=== PATIENT | female | born 1955 | race Caucasian/White ===

== ENCOUNTER 2018-04-30 05:16 | Inpatient (IN) ==
--- NOTE | 2018-04-25 17:25 | MH ---
cc: Carlos Shultz MD DATE OF ADMISSION: 04/30/2018 She is scheduled to be admitted to the hospital on 04/30/2018. ADMITTING DIAGNOSIS: Osteoarthritis, left knee. HISTORY OF PRESENT ILLNESS: The patient is a 62-year-old white female, who has had a rather longstanding history of pain involving both knees that extended back for at least 6 years, at which time the patient had undergone a right total knee arthroplasty as completed by Dr. Bronson Choudhury. At that time, the patient had been symptomatic about both extremities, but her right knee was the more involved area of discomfort. She reports an uneventful recovery at that time, but over the following years experienced progressive pain involving her left knee, that had become more pronounced with the passage of time, she would continue to utilize various anti-inflammatory medications including Feldene and more recently Celebrex, neither of which had proven to be of any long-term benefit. She had also received previous injections to her left knee. She was subsequently seen by the undersigned physician in March of this year, and at that time, reported obvious incapacitation regarding all ambulatory activities and currently requiring use of a cane as a full-time ambulatory aid. Her x-ray studies revealed obvious degenerative changes with [id number] apposition about the medial compartment, associated with a varus deformity of at least 10 degrees magnitude, secondary involvement of the patellofemoral articulation. Findings and treatment options were reviewed with the patient at that time. The pros and cons of continuing with conservative management versus operative intervention that would involve total knee arthroplasty were outlined in detail. Emphasis was made regarding the fact that the decision to proceed with surgery would be left entirely to the patient's discretion. The patient readily admitted that she had progressed to that point in time, where she was desirous of proceeding in this direction and in compliance with her wishes, she has currently been scheduled for admission in order that total knee replacement be completed. PAST MEDICAL HISTORY, HOSPITALIZATIONS AND SURGERIES: In addition to her right total knee arthroplasty have included TMJ surgery on the left side, which included implant insertion and subsequent implant removal. She has also undergone previous colonoscopy. MEDICAL ILLNESSES: Include hypertension, elevated cholesterol, hypothyroidism, acid reflux, and muscle spasms. CURRENT MEDICATIONS: 1. Flexeril 10 mg twice daily. 2. Celebrex 200 mg twice daily. 3. Lisinopril 40 mg daily. 4. Pravastatin 80 mg daily. 5. Levothyroxine 75 mcg daily. 6. Prilosec twice daily. ALLERGIES: THE PATIENT DENIES ANY KNOWN DRUG ALLERGIES. REVIEW OF SYSTEMS: She does wear glasses. She has had a history of headaches as related to her TMJ disorder. No seizure or syncope. No sinus congestion or epistaxis. Auditory acuity intact. No tinnitus. No bleeding gums or dysphagia. Denies cough, shortness of breath, upper respiratory infection, pneumonia, or tuberculosis. No angina or heart disease. She is medically managed for hypertension. Her appetite is good. Bowel movements are regular. No hepatitis, gallbladder disease, ulcers or hemorrhoids. No urinary tract infection, no kidney stones. Fracture of the 4th metatarsal of her left foot treated nonoperatively. No psychiatric illness. Her remaining review of systems is unremarkable and noncontributory. FAMILY HISTORY: Unremarkable for diabetes, hypertension, tuberculosis, carcinoma, heart, liver or kidney disease. SOCIAL HISTORY: The patient is single. The patient completed a BS education. She is employed as a computer typesetter. She denies active use of tobacco. Ethanol consumption on an occasional basis. PHYSICAL EXAMINATION: VITAL SIGNS: Height 5 feet 7 inches, weight 219 pounds. GENERAL: Reveals an alert, oriented, and responsive 62-year-old white female, who sits quietly upon the examination table with no obvious distress. HEENT: Pupils are equally round and reactive to light. Extraocular movements full. Sclerae are clear. External nares clear. External auditory canals clear. Dental intact. Mucous membranes pink and moist. Pharynx clear. NECK: Supple. There is some limitation of mobility at the extremes of motion with mild discomfort associated, that the patient describes as being chronic in nature. Carotid pulse is palpable bilaterally. Trachea midline. Thyroid without thyroid enlargement. LUNGS: Clear to auscultation and percussion. BACK: No CVA tenderness. No discomfort throughout the dorsolumbar spine. HEART: Regular rate and rhythm. No murmur or gallop. ABDOMEN: Mildly obese, soft, nontender. Bowel sounds present. PELVIC: Per primary care physician. EXTREMITIES: Left knee, there is a generalized fullness about the knee, consistent with redundancy of soft tissue. No obvious intraarticular effusion. Medial joint line tenderness without palpable deformity. Apprehension and compression sign negative. Limited mobility in the 100+ degree range of flexion with pain at the extreme of motion. No significant crepitus. No collateral ligamentous laxity. Amanda test and drawer sign negative. Pivot shift and Daly sign positive for medial compartment pain. Straight leg raising unremarkable at 80 degrees. Satisfactory mobility of the left hip with no associated pain. Distal sensory grossly intact. Mild antalgic gait. NEUROLOGIC: Cranial nerves 2-12 grossly intact. IMPRESSION: Osteoarthritis, left knee. PLAN: Left total knee arthroplasty: The nature of the planned surgical procedure, the potential complications, and risks associated, the expectations of surgery, and the consent form have been thoroughly reviewed with the patient prior to admission to the hospital. Dara has indicated her full understanding regarding all of the above, and given consent to proceed with treatment as outlined. Medical evaluation and clearance for surgery completed by her primary care physician, Dr. Olga Valente. Carlos Shultz MD [facility]/ , 04:43 PM , 04:55 PM
[2018-04-30] MEDS ORDERED: Chlorhexidine Gluconate 2% 1 Pack (2 Cloths) TOPICAL SCH (05:45)
[2018-04-30] MEDS ORDERED: Metoprolol Tartrate 25 MG Tablet PO SCH (05:45)
[2018-04-30] MEDS ORDERED: Sodium Chlor 0.9% Inj 50 ML, Ropivacaine 0.5% PF Inj 24.63 ML, Ketorolac Inj 30 MG, EPI... P-ARTICULR SCH ×5 (06:00)
[2018-04-30] MEDS ORDERED: Sodium Chlor 0.9% Inj 500 ML IV.SIG SCH (06:00)
[2018-04-30] MEDS ORDERED: Bupivacaine Liposomal PF 1.3% Inj 20 ML Vial ONE (06:00)
[2018-04-30] MEDS ORDERED: Tranexamic Acid Inj 1,000 MG in Sodium Chlor 0.9% Inj 100 ML IV.SIG SCH ×2 (06:00→09:00)
[2018-04-30] MEDS ORDERED: ceFAZolin Inj 2,000 MG in Sodium Chlor 0.9% Inj 80 ML IV.SIG SCH (06:00)
[2018-04-30] MEDS ORDERED: ceFAZolin 2 GM Premix Inj 2 GM/50 ML PIGGYBACK IV.SIG ONE (06:04)
[2018-04-30] MEDS ORDERED: Famotidine PF Inj 20 MG/2 ML Vial ONE (06:12)
[2018-04-30] MEDS: fentaNYL Citrate Inj 100 MCG/2 ML Ampul ONE ×2 (06:29→08:56)
[2018-04-30] MEDS ORDERED: fentaNYL Citrate Inj 100 MCG/2 ML Ampul ONE (09:04)
[2018-04-30] MEDS ORDERED: *morphine SULFATE 4 MG/ML PERIprocedure ONLY ONE ×3 (09:06→09:23)
[2018-04-30] MEDS ORDERED: Bisacodyl 10 MG Supp RECTAL PRN (09:14)
[2018-04-30] MEDS ORDERED: Naloxone Inj 0.4 MG/ML Vial IV.PUSH PRN (09:14)
[2018-04-30] MEDS ORDERED: Acetaminophen 325 MG Tablet PO PRN (09:14)
[2018-04-30] MEDS ORDERED: Aluminum/Magnesium/Simethacone Susp 30 ML UDC PO PRN (09:14)
[2018-04-30] MEDS ORDERED: Tranexamic Acid Inj 1,000 MG in Sodium Chlor 0.9% Inj 100 ML IV.SIG ONE (09:14)
[2018-04-30] MEDS ORDERED: Post-op Orders (for Pharmacy) OTHER STA (09:14)
--- NOTE | 2018-04-30 10:12 | XR ---
EXAM DATE: 04/30/2018 10:00 AM EDT AGE/SEX: 62 years / Female INDICATIONS: Post op left total knee arthroplasty. CLINICAL DATA: This is the patient's initial encounter. Patient reports that signs and symptoms have been present for 1 day and indicates a pain score of Nonresponsive. MEDICAL/SURGICAL HISTORY: None. None. COMPARISON: TLI, XR KNEE (1 OR 2 VIEWS), LEFT, 10/04/2016. . FINDINGS: Status post total left knee arthroplasty. All 3 components are appropriately positioned without fract ure. Suprapatellar drain is in place. CONCLUSION: Appropriate postoperative appearance of the left knee status post total arthroplasty. Electronically signed by: Kamlesh Powell MD 04/30/2018 10:11 AM EDT
[2018-04-30] MEDS ORDERED: Morphine Inj 30 MG/30 ML PCA.VIAL PCA PRN (10:14)
[2018-04-30] MEDS ORDERED: HYDROmorphone PF Inj 2 MG/ML Vial ONE (10:21)
--- NOTE | 2018-04-30 10:34 | MP ---
cc: Carlos Shultz MD DATE OF OPERATION: 04/30/2018 PREOPERATIVE DIAGNOSIS: Osteoarthritis of the left knee. POSTOPERATIVE DIAGNOSIS: Osteoarthritis of the left knee. PROCEDURE PERFORMED: Left total knee arthroplasty. SURGEON: Carlos Shultz MD. ANESTHESIA: General endotracheal. INDICATIONS: This is a 62-year-old white female with a longstanding history of bilateral knee pain extending back at least 6 years. The patient reported she had undergone a previous right total knee arthroplasty, but at that time had been symptomatic about both extremities; although, her right knee was the more involved area. She had an uneventful recovery and, over the following year, she experienced progressive pain about her left knee that became more pronounced with the passage of time, during which the patient utilized various anti-inflammatory medications including Feldene and later switched to Celebrex, neither of which have proven to be of any long-term benefit. Previous treatments have also included cortisone injections. She was later seen by the undersigned physician in 03/2018, and at that time she reported obvious incapacitation regarding all ambulatory activities. She was requiring use of a cane as a full-time ambulatory aid. Her x-ray studies revealed obvious degenerative changes with [id number] apposition about the medial compartment, associated with a varus deformity of at least 10 degrees magnitude and secondary involvement of the patellofemoral articulation. Findings and treatment options were reviewed. The pros and cons of continuing with conservative management versus operative intervention involving total knee arthroplasty were outlined. Emphasis was made regarding the fact that the decision to proceed with surgery would be left entirely to the patient's discretion. She readily admitted that she had progressed to that point in time where she desired to proceed accordingly and, in compliance with her wishes, she was scheduled for admission at this time in order that the above be accomplished. FORMAT: Following the induction of satisfactory general anesthesia by endotracheal intubation as completed per the department of anesthesia, a tourniquet was established around the proximal portion of the left lower extremity. The extremity proper was isolated with a U-drape, thereafter being prepped with Betadine solution and draped into a sterile field in the routine manner. Prior to initiation of the actual procedure, the standard timeout protocol was completed. All parameters were appropriately addressed and confirmed by operating room personnel. The extremity was elevated for approximately 1 minute and the tourniquet thus inflated to 250 mmHg pressure. A sharp skin incision was initiated midline over the anterior aspect of the knee and developed through underlying subcutaneous tissue, with hemostasis maintained by electrocautery. By deepening dissection, the anterior capsule was exposed, the medial capsulotomy completed, and the patella subluxed in a lateral orientation. Examination of the joint space revealed tricompartmental degenerative changes, with complete erosion of articular cartilage and underlying subchondral bone exposed. The articular surface of the patella was resected with a power saw. The 3-holed guide was utilized for establishing post-holes. Medial and lateral meniscus structures as well as anterior cruciate ligament were sharply excised. A centering hole was placed in the distal aspect of the femur, allowing positioning of the intramedullary guide. The distal femoral cutting jig was attached and the distal femur resected. AP measurement noted 62.5-mm sizing to be appropriate. The matching cutting block was positioned. Anterior, posterior, and chamfer cuts were completed. Tibial plateau was thereafter subluxed in an anterior orientation, allowing positioning of the extramedullary guide. The tibial plateau was resected and measured with 71-mm sizing and determined to be satisfactory. Trial reduction followed utilizing a 62.5-mm anatomic femoral component, a 71-mm tibial base with both 10 and 12-mm bearing inserts trialed, and the 12-mm thickness was determined to be the more favorable fit. The knee was readily brought to full extension. There was no laxity to varus and valgus stress at both 0 and 90 degrees flexed posture. Orientation was confirmed as appropriate with measurement of the pelvic guide through the mechanical access of the knee. A trial reduction followed utilizing a 28-mm standard 3 post-patellar button. Once again, good tracking demonstrated with no tendency towards subluxation. All trial components being removed, the remaining portion of the proximal tibia was prepared for insertion of the permanent component. The joint space, being thoroughly lavaged with pulsating antibiotic solution, hemostasis maintained by electrocautery. An autogenous bone plug was inserted into the distal femoral guide hole and thereafter a preparation of Palacos bone cement was utilized in inserting knee components in a sequential fashion, which included a 71-mm fixed cruciate tibial plate, to which a 12-mm Vanguard tibial bearing insert was secured with locking park. The 62.5-mm Vanguard femoral component was firmly seated onto the distal femur, excess cement being removed. The knee was brought to full extension and thereafter a 28-mm standard 3 post-patellar button was attached and maintained in place with patellar clamp while cement hardening was complete. Final range of motion assessment noted good tracking stability throughout the knee. Irrigation was repeated with hemostasis maintained. AutoVac drain tubes were inserted through superior stab wounds. The capsule was repaired with 0 Vicryl suture. The remaining portion of the wound was closed in layers in a routine manner, skin margins being reapproximated with a running subcuticular 3-0 Vicryl suture, over which Steri-Strips were applied. Xeroform gauze and a bulky dry sterile dressing were placed. The tourniquet was deflated after 47 minutes of tourniquet time, the extremity being supported in a canvas knee splint. Anesthesia was discontinued and the patient was transferred to a hospital bed and returned to the recovery room in satisfactory condition, having tolerated her operative procedure well. ESTIMATED BLOOD LOSS: Approximately 50 mL as determined per anesthesia. IMPLANTS: All implants were of the [employer] portfolio director. MD NINA Juárez/junior , 09:04 AM , 09:15 AM
[2018-04-30] MEDS ORDERED: Neostigmine Inj 5 MG/5 ML Syringe IV.PUSH ONE (12:00)
[2018-04-30] MEDS ORDERED: Glycopyrrolate Inj 1 MG/5 ML Syringe IV.PUSH ONE (12:00)
[2018-04-30] MEDS ORDERED: Lidocaine PF 1% Inj 5 ML Syringe INFILTRATN ONE (12:00)
--- NOTE | 2018-04-30 13:03 | P.CONIM ---
History of Present Illness Consult date: 04/30/18 Reason for Consult: Opinion and recommendations on treatment of hypertension and hyperlipidemia Primary Care Provider: Olga Valente MD Family Provider: Olga Valente MD History of Present Illness: 62-year-old white female with a history of hypertension, hyperlipidemia, osteoarthritis was had long-term history of left knee pain despite conservative treatment and electively underwent a left total knee arthroplasty today with Dr. shultz. Currently, she is resting and recovering in the PACU. She states her pain is controlled well. She has no other complaints at this time. She states that she does not have problems with constipation. She has not had history of bloody stools or black tarry stools. She states that her blood pressures are relatively controlled well on her home medication. Review of Systems All other systems reviewed negative except as stated in HPI PMFSH - History History Provided By: Patient - Medical History Medical History: Medical History (Last Reviewed 04/30/18 @ 12:53 by Sandi Fernandes MD) Arthritis GERD (gastroesophageal reflux disease) History of anesthesia reaction Hyperlipidemia Hypothyroid Normal colonoscopy Presence of orthopedic joint implant TMJ (temporomandibular joint disorder) - Surgical History Surgical History: Surgical History (Last Reviewed 04/30/18 @ 12:53 by Sandi Fernandes MD) History of mandibular surgery Hx of breast biopsy Hx of total knee replacement - Family History Family History: Family History (Last Updated 04/30/18 @ 12:53 by Sandi Fernandes MD) Other No known health problems - Tobacco History Second Hand Smoke Exposure: No Tobacco Use In Past 30 Days: No Smoking Status: Never smoker - Alcohol History How Often Do You Have a Drink Containing Alcohol: Monthly or less - Substance Use History Substance History: No History of Abuse - Travel History Recent Travel in the [place] Within the Last 8 Weeks: No Recent Travel Out of the Country Within the Last 8 Weeks: No Medications and Allergies Active Medications: Active Medications Acetaminophen (Tylenol) 650 mg PO Q6H PRN PRN Reason: FEVER > 102 F Hydrocodone Bitart/Acetaminophen ([place] 5/325) 1 tab PO Q4H PRN PRN Reason: PAIN LESS THAN 5 ON SCALE Hydrocodone Bitart/Acetaminophen ([place] 5/325) 2 tab PO Q6H PRN PRN Reason: PAIN SCALE 5 TO 10 Al Hydrox/Mg Hydrox/Simethicone (Mag-Al Plus Susp Liq) 30 ml PO Q6H PRN PRN Reason: INDIGESTION Al Hydroxide/Mg Hydroxide (Milk Of Magnesia Liq) 30 ml PO BID PRN PRN Reason: Mild Constipation Aspirin (Aspirin) 325 mg PO BID [facility] Bisacodyl (Dulcolax Supp) 10 mg RECTAL DAILY PRN PRN Reason: SEVERE CONSITIPATION Chlorhexidine Gluconate (Chlorhexidine 2% Cloth) 3 pack TOPICAL ACCOUNT ADJUSTER [facility] Stop: 05/03/18 05:39 Last Admin: 04/30/18 05:30 Dose: 3 pack Cyclobenzaprine HCl (Flexeril) 10 mg PO BID [facility] Lactated Ringer's (Lr 1000 Ml Inj) 1,000 mls @ 30 mls/hr IV.SIG .Q24H [facility] Stop: 05/03/18 05:39 Last Infusion: 04/30/18 07:31 Dose: Infused Sodium Chloride (Ns Inj) 500 mls @ 30 mls/hr IV.SIG .Q10H [facility] Stop: 05/03/18 05:39 Cefazolin Sodium 2,000 mg/ (Sodium Chloride) 100 mls @ 100 mls/hr IV.SIG ACCOUNT ADJUSTER [facility] Stop: 04/30/18 18:00 Last Infusion: 04/30/18 07:31 Dose: Infused Tranexamic Acid 1,000 mg/ (Sodium Chloride) 110 mls @ 200 mls/hr IV.SIG ONCE [facility] Stop: 04/30/18 15:00 Last Infusion: 04/30/18 10:15 Dose: Infused Cefazolin Sodium 1,000 mg/ (Sodium Chloride) 100 mls @ 200 mls/hr IV.SIG Q6H [facility] Stop: 05/01/18 01:29 Lactated Ringer's (Lr 1000 Ml Inj) 1,000 mls @ 80 mls/hr IV.CONT .[id number] [facility] Morphine Sulfate (Morphine Inj) 30 mg in 30 mls @ 0 mls/hr [employer] SOFTWARE ENGINEER UNSCH PRN PRN Reason: per [employer]LE SOFTWARE ENGINEER parameters Stop: 05/01/18 10:13 Last Admin: 04/30/18 10:30 Dose: 0 mls/hr Lactulose (Lactulose Liq) 30 ml PO DAILY PRN PRN Reason: SEVERE CONSITIPATION Levothyroxine Sodium (Synthroid) 75 mcg PO DAILY@0600 [facility] Lisinopril (Prinivil) 40 mg PO DAILY [facility] Metoprolol Tartrate (Lopressor) 25 mg PO ACCOUNT ADJUSTER [facility] Stop: 05/03/18 05:39 Last Admin: 04/30/18 06:31 Dose: Not Given Miscellaneous Information ([facility]) 0 each OTHER UNSCH PRN PRN Reason: SEE DOSE INSTRUCTIONS Miscellaneous Information ([facility]) 1 each OTHER UNSCH PRN PRN Reason: SEE LABEL COMMENTS Stop: 05/01/18 08:57 Multivitamins (Theragran) 1 tab PO DAILY [facility] Naloxone HCl (Narcan Inj) 0.4 mg IV.PUSH PRN PRN PRN Reason: Resp rate < 10 Non-Formulary Medication (Omeprazole Magnesium [Prilosec Otc]) 20 mg PO BID [facility] Ondansetron HCl (Zofran Inj) 4 mg IV.PUSH Q6H PRN PRN Reason: NAUSEA OR VOMITING Povidone Iodine (Betadine 5% Antisepsis Kit) 1 applicatio EACH NARE ACCOUNT ADJUSTER [facility] Stop: 05/03/18 05:39 Last Admin: 04/30/18 06:00 Dose: 1 applicatio Povidone Iodine (Betadine 7.5% Scrub) 1 applicatio TOPICAL ONCE [facility] Stop: 05/04/18 05:59 Last Admin: 04/30/18 05:30 Dose: 1 applicatio Pravastatin Sodium (Pravachol) 80 mg PO DAILY [facility] Senna/Docusate Sodium (Norah-Colace) 1 tab PO BID [facility] Sennosides (Senokot) 17.2 mg PO BID PRN PRN Reason: Moderate Constipation Sodium Chloride (Ns Flush) 2 ml IV.FLUSH BID [facility] Sodium Chloride (Ns Flush) 2 ml IV.FLUSH PRN PRN PRN Reason: FLUSH AFTER USING IV ACCESS Vitamin D (Vitamin D3) 1,000 unit PO DAILY [facility] Zolpidem Tartrate (Ambien) 5 mg PO HS PRN PRN Reason: INSOMNIA Allergies Allergy/AdvReac Type Severity Reaction Status Date / Time naproxen AdvReac Severe NAUSEA Verified 04/30/18 05:59 Home Medications Medication Instructions Recorded Confirmed Type calcium carbonate [Tums] 300 mg PO BID 04/21/18 04/30/18 History celecoxib [Celebrex] 200 mg PO BID 04/21/18 04/30/18 History cholecalciferol (vitamin D3) 1,000 unit PO DAILY 04/21/18 04/30/18 History [Vitamin D3] coenzyme Q10 [CoQ-10] 100 mg PO DAILY 04/21/18 04/30/18 History cyclobenzaprine 10 mg PO BID 04/21/18 04/30/18 History lisinopril 40 mg PO DAILY 04/21/18 04/30/18 History multivitamin [Daily Multi-Vitamin] 1 tab PO DAILY 04/21/18 04/30/18 History omeprazole magnesium [Prilosec OTC] 20 mg PO BID 04/21/18 04/30/18 History pravastatin [Pravachol] 80 mg PO DAILY 04/21/18 04/30/18 History levothyroxine 75 mcg PO DAILY 04/22/18 04/30/18 History Exam Vital signs: Vital Signs 04/30/18 06:00 04/30/18 06:04 04/30/18 09:00 Temperature 98.8 F 97.5 F L Pulse Rate 75 81 Respiratory Rate 16 20 Blood Pressure 137/96 H 133/88 Pulse Oximetry 98 99 94 L 04/30/18 09:15 04/30/18 09:30 04/30/18 09:45 Temperature Pulse Rate 77 68 58 L Respiratory Rate 20 20 17 Blood Pressure 128/86 131/78 136/84 Pulse Oximetry 98 97 97 04/30/18 10:00 04/30/18 10:15 04/30/18 10:30 Temperature Pulse Rate 59 L 80 75 Respiratory Rate 14 23 19 Blood Pressure 138/84 120/80 127/81 Pulse Oximetry 99 95 97 04/30/18 10:45 04/30/18 10:56 Temperature Pulse Rate 82 Respiratory Rate 17 14 Blood Pressure 149/75 H Pulse Oximetry 97 Intake & Output 04/29/18 04/30/18 04/30/18 18:59 06:59 18:59 Intake Total 1610 / 1610 Output Total 50 / 50 Balance 1560 / 1560 Weight 100 kg Intake: IV 1320 / 1320 LR 1000 mL Inj 1,000 ML @ 30 1000 / 1000 mls/hr IV.SIG .Q24H [facility] Rx#: [id number] Cyklokapron Inj 1,000 MG In NS 220 / 220 Inj 100 ML @ 200 mls/hr IV.SIG ONCE [facility] Rx#:[id number] Ancef Inj 2,000 MG In NS Inj 80 100 / 100 ML @ 100 mls/hr IV.SIG ACCOUNT ADJUSTER [facility] Rx#:[id number] Anesthesia Amount 290 / 290 Output: Estimated Blood Loss 50 / 50 Other: Weight On Admission 100 kg Narrative: GENERAL: Well-nourished well-developed white female in no acute distress on CPM SKIN: Warm and dry. HEAD: Atraumatic. Normocephalic. EYES: No scleral icterus. No injection or drainage. ENT: No nasal bleeding or discharge. Mucous membranes pink and moist. NECK: Trachea midline. No JVD. CARDIOVASCULAR: Regular rate and rhythm. RESPIRATORY: No accessory muscle use. Clear to auscultation. Breath sounds equal bilaterally. GASTROINTESTINAL: Abdomen soft, non-tender, nondistended. Hepatic and splenic margins not palpable. MUSCULOSKELETAL: Extremities without clubbing, cyanosis, or edema. Left lower extremity on CPM NEUROLOGICAL: Awake and alert to person place. No obvious cranial nerve deficits. Motor grossly within normal limits. Normal speech. PSYCHIATRIC: Appropriate mood and affect; insight and judgment normal. Results - Labs Labs: Laboratory Results - last 24 hr 04/30/18 05:53 Blood Type O Positive Blood Type Recheck Not needed Antibody Screen Negative - Imaging Impressions Knee X-Ray 04/30/18 09:10 CONCLUSION: Appropriate postoperative appearance of the left knee status post total arthroplasty. Assessment and Plan - Plan 62-year-old white female electively underwent a left total knee arthroplasty 1. Status post left total knee arthroplastycontinue postoperative care, pain control, rehab per orthopedic surgery Dr. Shultz. 2. Hypertension resume home lisinopril, further recommendation based on blood pressure trends, IV Vasotec as needed for uncontrolled blood pressure 3. Hyperlipidemiacontinue statin 4. GERDresume home PPI 5. DVT prophylaxisaspirin per orthopedic surgery
[2018-04-30] MEDS: Aspirin 325 MG Tablet PO SCH (20:42)
[2018-04-30] MEDS: Senna/Docusate Sodium 8.6/50 MG Tablet PO SCH (20:42)
[2018-04-30] MEDS ORDERED: Zolpidem Tartrate 5 MG Tablet PO PRN (21:00)
[2018-05-01 05:11] LABS: Hematocrit 41.5 % (35.0-46.0); Hemoglobin 13.8 gm/dL (11.6-15.3)
[2018-05-01] MEDS: Levothyroxine 75 MCG Tablet PO SCH (06:25)
--- NOTE | 2018-05-01 06:34 | P.DCO ---
- Physical Therapy Order: Evaluate and treat, Strength and gait training - Home Health Nursing Order: Wound care and dressing changes - Home Health Aide Order: To assist in: Bathing and personal care - Contact Agent Order: To evaluate: Support services - Case Management Consult Yes - Certification I have seen patient Dara Tian on 05/01/18. My clinical findings support the need for the requested home health care services because: Limited ability to care for self, High risk of falls I certify that my clinical findings support that this patient is homebound because: Post-op weakness, Unsteady gait/balance, Unsafe to leave home unassisted
[2018-05-01] MEDS: Lisinopril 20 MG Tablet PO SCH (07:59)
[2018-05-01] MEDS: Senna/Docusate Sodium 8.6/50 MG Tablet PO SCH ×2 (07:59→21:54)
[2018-05-01] MEDS: Aspirin 325 MG Tablet PO SCH ×2 (07:59→21:54)
[2018-05-01] MEDS ORDERED: Non-Formulary Drug (Coenzyme Q10 [Coq-10] 100 MG) PO SCH (09:00)
--- NOTE | 2018-05-01 12:29 | P.PNIM ---
Subjective Interval history: Pain control. Tolerating diet. Feeling better. Physical Exam Vital signs: Vital Signs 04/30/18 13:00 04/30/18 13:30 04/30/18 16:00 Temperature 97.5 F L 98 F Pulse Rate 97 H 93 H 71 Respiratory Rate 17 17 16 Blood Pressure 136/87 153/79 H 141/83 H Pulse Oximetry 98 98 99 04/30/18 20:00 05/01/18 00:00 05/01/18 04:00 Temperature 97.8 F 98.6 F 98.3 F Pulse Rate 92 H 94 H 88 Respiratory Rate 18 18 18 Blood Pressure 133/66 120/73 113/76 Pulse Oximetry 98 98 98 05/01/18 08:00 Temperature 98.9 F Pulse Rate 82 Respiratory Rate 16 Blood Pressure 115/74 Pulse Oximetry 98 Intake & Output 04/30/18 05/01/18 05/01/18 18:59 06:59 18:59 Intake Total 2150 / 2150 1100 / 1100 Output Total 140 / 140 Balance 2009 1100 / 1100 Intake: IV 1520 / 1520 1100 / 1100 LR 1000 mL Inj 1,000 ML @ 80 1000 / 1000 mls/hr IV.CONT .[id number] [facility]A Rx# :[id number] LR 1000 mL Inj 1,000 ML @ 30 1000 / 1000 mls/hr IV.SIG .Q24H [facility]A Rx#: [id number] Cyklokapron Inj 1,000 MG In NS 220 / 220 Inj 100 ML @ 200 mls/hr IV.SIG ONCE [facility]A Rx#:[id number] Ancef Inj 1,000 MG In NS Inj 200 / 200 100 / 100 100 ML @ 200 mls/hr IV.SIG Q6H [facility] Rx#:[id number] Ancef Inj 2,000 MG In NS Inj 80 100 / 100 ML @ 100 mls/hr IV.SIG [employer]IE[employer] FRIEDA Rx#:[id number] Oral 340 / 340 Anesthesia Amount 290 / 290 Output: Estimated Blood Loss 50 / 50 Wound Drainage # 1 Left Knee Other: # Voids 3 Date of Last Bowel Movement 04/29/18 Narrative: GENERAL: This is a well-nourished, well-developed patient, in no apparent distress. CARDIOVASCULAR: Regular rate and rhythm RESPIRATORY: Clear to auscultation. Breath sounds equal bilaterally. No wheezes , rales, or rhonchi. GASTROINTESTINAL: Abdomen soft, non-tender, nondistended. Normal active bowel sounds MUSCULOSKELETAL: Left knee bandage clean dry intact NEURO: Alert & Oriented x4 to person, place, time, situation. Moves all ext x4 Results - Labs CBC & Chem 7: 05/01/18 04:38 Laboratory Results - last 24 hr 05/01/18 04:38 Hgb 13.8 Hct 41.5 Assessment and Plan - Plan 62-year-old white female electively underwent a left total knee arthroplasty 1. Status post operative day #1 left total knee arthroplastycontinue postoperative care, pain control, rehab per orthopedic surgery Dr. Shultz. 2. Hypertension resume home lisinopril, overall blood pressure controlled well. 3. Hyperlipidemiacontinue statin 4. GERDresume home PPI 5. DVT prophylaxisaspirin per orthopedic surgery
[2018-05-02 01:54] VITALS: RESP 16
[2018-05-02] MEDS: Levothyroxine 75 MCG Tablet PO SCH (05:47)
[2018-05-02 07:22] VITALS: O2SAT 96
[2018-05-02] MEDS: Aspirin 325 MG Tablet PO SCH (08:22)
[2018-05-02] MEDS: Lisinopril 20 MG Tablet PO SCH (08:22)
[2018-05-02] MEDS: Senna/Docusate Sodium 8.6/50 MG Tablet PO SCH (08:23)
[2018-05-02 08:54] VITALS: BP 138/74; PULSE 84; TEMP 97.3
--- NOTE | 2018-05-05 04:41 | MD ---
cc: Carlos Shultz MD, Rebecca MD DATE OF DISCHARGE: 05/02/2018 ADMITTING DIAGNOSIS: Osteoarthritis of the left knee. DISCHARGE DIAGNOSIS: Osteoarthritis of the left knee. HISTORY: A 62-year-old white female with a longstanding history of bilateral knee pain extending back for at least 6 years as related to osteoarthritis. The patient had undergone a previous right total knee arthroplasty a number of years ago and at that time reported she had been symptomatic about both extremities, but her right knee was the more involved area necessitating treatment at that time. Thereafter, she completed her course of rehabilitation, but continued to remain symptomatic with pain involving her left knee that became more pronounced with the passage of time. Continued conservative modalities included antiinflammatory medication including Feldene and later switched to Celebrex, intraarticular injection and therapy intervention. Current x-ray studies revealed obvious degenerative changes with [id number] apposition about the medial compartment, associated with a varus deformity of at least 10 degrees magnitude and secondary involvement of the patellofemoral articulation. At that time, the patient expressed her desire to proceed with a more definitive course of treatment, especially as related to operative treatment and in compliance with her wishes, she was scheduled for admission at this time in order that total knee replacement be completed. Her physical examination at the time of admission revealed a generalized fullness about the left knee consistent with redundancy of soft tissue. There was no obvious intraarticular effusion. Medial joint line tenderness, without palpable deformity. Apprehension and compression sign negative. Limited mobility in the 100+ degree range of flexion with pain at the extreme of motion. No significant crepitation. No collateral ligamentous laxity. Amanda test and drawer sign negative. Pivot shift and Daly sign positive for medial compartment pain. Straight leg raising unremarkable at 80 degrees. Satisfactory mobility of the left hip with no associated pain. Distal sensory grossly intact. Mild antalgic gait. HOSPITAL COURSE: Prior to admission to the hospital, the patient had undergone medical evaluation and clearance for surgery as completed by her primary care physician, Dr. Olga Valente. She was taken to the operating room on 04/30/2018 and on that date underwent a left total knee arthroplasty, completed in an uncomplicated manner. The patient was noted to have tolerated her operative procedure well. Her postoperative course stable thereafter. Hemoglobin and hematocrit assessment postoperatively was 13.8 and 41.5, respectively. The patient was progressively mobilized under the guidance of physical therapy, being permitted weightbearing to tolerance about the left lower extremity. Followup examination of her surgical wound noted to be intact, healing favorably, no evidence of infection. Medical followup per the hospitalist service. DVT prophylaxis initiated. Headmaster/Mistress consulted to assist with discharge planning. The patient had initially indicated her desire to proceed with rehab placement upon discharge. Unfortunately, bed space was not available in this regard and thus the patient elected to be discharged to home where she would continue on an outpatient basis with regard to her rehab program. She was scheduled for discharge on the second postoperative day, at which time she was noted to be making favorable progress with regard to her initial rehab program. She was scheduled to be seen in office followup in approximately 4 weeks. CONDITION AT THE TIME OF DISCHARGE: Stable. PROGNOSIS: Favorable. DISCHARGE MEDICATIONS: Included hydrocodone 5/325, #20; aspirin 325 mg 1 tab twice daily for 3 weeks. MD NINA Juárez/breanne/jacinta , 06:27 AM , 06:36 AM
== END 2018-05-02 09:26 | disposition home health service (06) ==
LOC: HSDI 05:16 → N06 14:12
PROVIDERS: ADMIT Orthopaedic Surgery; ATTEND Orthopaedic Surgery